=== PATIENT | male | born 1960 | race Caucasian/White ===

== ENCOUNTER 2016-12-23 12:44 | Emergency (ER) | payer SELFPAY ==
[~2016-12-23] VITALS: Ht 177.8 cm; Wt 105.0 kg
[~2016-12-23 12:44] MED LIST: AMLO10 PO; CITA20TA4 PO; GABA100C4 PO; LISI20 PO
[2016-12-23 12:45] VITALS: BP 135/71; PULSE 76; RESP 20; TEMP 98.2; O2SAT 96
--- NOTE | 2016-12-23 13:50 | PD ---
HPI Chief Complaint: Hip Injury Time Seen by Provider: 13:50 Travel History International Travel<30 days: No Contact w/Intl Traveler<30days: No Traveled to known affect area: No History of Present Illness HPI 56-year-old male presents to the emergency Department with complaint of right hip pain for the last few months. Denies injury. Denies new or recent injury. Complains of worsening of pain over the past few weeks. His primary care provider told him to go to urgent care for an x-ray and when he went to [facility] they had a 4 hour wait. He denies paresthesias, loss of sensation, decreased range of motion, decreased strength to the affected extremity. Denies fever, chills, nausea, vomiting. Has taken Motrin with good relief of pain. Pain is aggravated with standing too long and walking. Has an established primary care provider. No other modifying factors or associated signs and symptoms. 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 HEAD: Atraumatic. Normocephalic. EYES: Pupils equal and round. No scleral icterus. No injection or drainage. ENT: Mucosa pink and moist. Airway patent. NECK: Trachea midline. CARDIOVASCULAR: Regular rate. RESPIRATORY: No accessory muscle use. GASTROINTESTINAL: Rounded. MUSCULOSKELETAL: Right hip with full range of motion; without tenderness on abduction; no tenderness on palpation; no obvious deformities; no leg length discrepancy. Right lower extort is supple and non-tense with 2+ pedal pulse and sensory intact and without erythema or edema. No obvious deformities. Ambulatory at bedside with limp to the right leg. NEUROLOGICAL: Awake and alert. Oriented 3. No obvious cranial nerve deficits. Motor grossly within normal limits. Normal speech. PSYCHIATRIC: Appropriate mood and affect; insight and judgment normal. Data Data Last Documented VS Vital Signs Date Time Temp Pulse Resp B/P Pulse Ox O2 Delivery O2 Flow Rate FiO2 12/23/16 12:45 98.2 76 20 135/71 96 Room Air [facility] Medical Screen Exam Complete: Yes Emergency Medical Condition: No Differential Diagnosis Arthritis, hip pain, medical clearance Narrative Course 56-year-old male with right hip pain for the last few months. Denies injury. He has an established primary care provider and says his PCP told him to go to [facility] for an x-ray of the hip. Patient is ambulatory with a right leg limp. I do not suspect fracture, dislocation and feel that imaging is not necessary at this time. Vital signs are stable and the patient is stable for outpatient follow-up and treatment. The patient has no urgent or emergent medical complaints. There is no emergent or urgent medical need at this time. I instructed the patient to follow up with their primary care provider. A medical screening exam was performed: At the time of evaluation the presenting medical condition was determined not to be of an emergent nature. The patient was given the option of receiving additional care, but declined. Patient was given options for additional community resources from which to obtain care. The Patient Has Been advised to seek medical attention for their presenting complaint. The patient has been advised to return to the ER at any time if an emergent condition develops. Primary Impression: Encounter for medical screening examination Condition: Stable April Baker Dec 23, 2016 13:50
== END 2016-12-23 14:12 | disposition left against medical advice (07) ==
LOC: NEPB 12:44
DX: M25.551 Pain in right hip (principal)
CPT/HCPCS: 99281